=== PATIENT | female | born 1995 | race Caucasian/White ===

== ENCOUNTER 2023-10-24 00:54 | Emergency (ER) | payer SELFPAY ==
[2023-10-24 00:59] VITALS: BP 149/93; PULSE 92; TEMP 36.7; O2SAT 98; BMI 34.4
[2023-10-24 01:08] VITALS: O2SAT 98
--- NOTE | 2023-10-24 01:08 | ED.URI1 ---
HPI - URI/Sore Throat General Chief Complaint: Upper Respiratory Infection Stated Complaint: SORE THROAT Time Seen by Provider: 10/24/23 01:05 Source: patient Limitations: no limitations History of Present Illness HPI Narrative: presents complaining of sore throat. occ cough. Not short of breath. describes coughing up blood tinged phlegm and left sided chest pain. No fever. No problem walking but does hurt when she swallows. No abdominal pain states drinking water all day Related Data Home Medications ?Medication ?Instructions ?Recorded ?Confirmed No Known Home Medications 10/24/23 10/24/23 Allergies Allergy/AdvReac Type Severity Reaction Status Date / Time cefaclor [From Counts Include [facility] At [facility]] AdvReac Mild Hives Verified 10/24/23 01:04 Review of Systems ROS Status of ROS 10 or more systems reviewed and unremarkable except as noted in history and below Exam Constitutional Vital Signs, click to edit/add: Last Vital Signs Temp 98.0 F 10/24/23 00:59 Pulse 92 H 10/24/23 00:59 Resp 18 10/24/23 00:59 BP 149/93 H 10/24/23 00:59 Pulse Ox 98 10/24/23 01:08 O2 Del Method Room Air 10/24/23 01:08 Common normals: no apparent distress, average body habitus, oriented x3, no limitations, healthy appearing, alert and well nourished [facility] Other: oral pharynx injected-mild. no swelling or exudate Eye Common normals: PERRL and EOMs intact bilaterally Respiratory Common normals: normal respiratory effort, no retractions, no use of accessory muscles and clear to auscultation bilaterally Cardio Common normals: regular rate, regular rhythm, S1 normal heart sound and S2 normal heart sound GI Common normals: Normal to inspection, nondistended, normoactive bowel sounds present, soft to palpation and non-tender Extremity Common normals: normal to inspection and full ROM Neuro Common normals: oriented x3 and moves all extremities Psych Appearance: grossly normal Course Vital Signs Vital signs: Vital Signs Temperature 98.0 F 10/24/23 00:59 Pulse Rate 92 H 10/24/23 00:59 Respiratory Rate 18 10/24/23 00:59 Blood Pressure 149/93 H 10/24/23 00:59 Pulse Oximetry 98 04/03/24 00:59 Oxygen Delivery Method Room Air 10/24/23 00:59 Temperature 98.0 F 10/24/23 00:59 Pulse Rate 92 H 10/24/23 00:59 Respiratory Rate 18 10/24/23 00:59 Blood Pressure 149/93 H 10/24/23 00:59 Pulse Oximetry 98 10/24/23 01:08 Oxygen Delivery Method Room Air 10/24/23 01:08 MDM - URI/Sore Throat MDM Narrative Medical decision making narrative: presents with blood tinged phlegm. neg dyspnea and sore throat. strep screen neg. cxray neg and d-dimer neg. Patient discharged with a prescription of zithromax for bronchitis and pharyngitis Lab Data Labs: Lab Results 10/24/23 10/24/23 Range/Units 01:05 01:26 WBC 6.7 (4.0-11.0) 10^3/uL RBC 4.47 (4.20-5.40) 10^6/uL Hgb 10.8 L (12.0-16.0) g/dL Hct 35.5 L (36.0-48.0) % MCV 79.4 L (81.0-99.0) fL MCH 24.2 L (26.7-34.0) pg MCHC 30.4 (29.9-35.2) g/dL RDW 17.0 H (11.0-15.0) % Plt Count 216 (150-450) 10^3/uL MPV 9.7 (9.5-13.5) fL Neut % (Auto) 81.1 H (43.0-75.0) % Lymph % (Auto) 10.0 L (20.5-60.0) % [place] % (Auto) 7.8 (1.7-12.0) % Eos % (Auto) 0.7 L (0.9-7.0) % Baso % (Auto) 0.1 L (0.2-2.0) % Neut # (Auto) 5.4 (1.4-6.5) 10^3/uL Lymph # (Auto) 0.7 L (1.2-3.8) 10^3/uL [place] # (Auto) 0.5 (0.3-0.8) 10^3/uL Eos # (Auto) 0.1 (0.0-0.7) 10^3/uL Baso # (Auto) 0.0 (0.0-0.1) 10^3/uL Abs Immat Gran (auto) 0.02 (0.00-0.03) 10^3/uL Imm/Tot Granulo (auto) 0.3 (0.0-0.5) % D-Dimer 0.25 (<=0.59) mg/L FEU Sodium 140 (136-145) mmol/L Potassium 3.8 (3.5-5.1) mmol/L Chloride 103 (98-107) mmol/L Carbon Dioxide 26.6 (21.0-32.0) mmol/L Anion Gap 14.2 BUN 10.0 (7.0-18.0) mg/dL Creatinine 0.72 (0.55-1.02) mg/dL Est GFR ( Amer) >60 (>=60) Est GFR (Non-Af Amer) >60 (>=60) BUN/Creatinine Ratio 13.9 Glucose 93 (74-106) mg/dL Calcium 8.8 (8.5-10.1) mg/dL Streptococcus Screen Negative Discharge Plan Discharge Stand Alone Forms: Portal Instructions Chief Complaint: Upper Respiratory Infection Clinical Impression: Bronchitis, Pharyngitis Patient Disposition: Home, Self-Care Prescriptions / Home Meds: No Action No Known Home Medications Print Language: Citizen Of [place] Instructions: Pharyngitis (ED), Acute Bronchitis (ED) Referrals: Physician,Non-Staff, MD [Primary Care Provider] - 1 week
--- NOTE | 2023-10-24 01:12 | XR_ITS ---
The [address] [address] Patient Name: SLIM RAO MRN: [id number] date: 1995 Sex: F Assigned Patient Location: ED.MAIN Current Patient Location: ER Accession/Order Number: [id number] Exam Date: 10/24/2023 01:26 Report Date: 10/24/2023 01:58 At the request of: PIETRO CHI Procedure: XR chest 2V EXAMINATION:XR chest 2V INDICATION:cough COMPARISON:None TECHNIQUE:Frontal and lateral projections of the chest are submitted. FINDINGS: The cardiomediastinal silhouette is not enlarged. The pulmonary vascularity is within normal limits. The lungs are clear based on chest radiography. There is no costophrenic angle blunting. XR/XR chest 2V IMPRESSION: Unremarkable plain film examination of the chest. Electronically authenticated by: DOMINIK JOHNSON Date: 10/24/2023 01:58
[2023-10-24 01:36] LABS: Basophils Percent Auto 0.1 % (0.2-2.0); Eosinophils Absolute Auto 0.1 10^3/uL (0.0-0.7); Eosinophils Percent Auto 0.7 % (0.9-7.0); Hematocrit 35.5 % (36.0-48.0); Hemoglobin 10.8 g/dL (12.0-16.0); Immature Granulocytes Abs Auto 0.02 10^3/uL (0.00-0.03); Immature Granulocytes Pct Auto 0.3 % (0.0-0.5); Lymphocytes Absolute Auto 0.7 10^3/uL (1.2-3.8); Mean Corpuscular HGB Conc 30.4 g/dL (29.9-35.2); Mean Corpuscular Hemoglobin 24.2 pg (26.7-34.0); Mean Corpuscular Volume 79.4 fL (81.0-99.0); Mean Platelet Volume 9.7 fL (9.5-13.5); Monocytes Absolute Auto 0.5 10^3/uL (0.3-0.8); Monocytes Percent Auto 7.8 % (1.7-12.0); Neutrophils Absolute Auto 5.4 10^3/uL (1.4-6.5); Neutrophils Percent Auto 81.1 % (43.0-75.0); Platelet Count 216 10^3/uL (150-450); Red Blood Count 4.47 10^6/uL (4.20-5.40); White Blood Count 6.7 10^3/uL (4.0-11.0)
[2023-10-24] MEDS: 0.9 % SODIUM CHLORIDE 1,000 ML 999 ML IV (01:36)
[2023-10-24 01:47] LABS: Anion Gap 14.2; BUN Creatinine Ratio 13.9; Calcium 8.8 mg/dL (8.5-10.1); Carbon Dioxide 26.6 mmol/L (21.0-32.0); Chloride 103 mmol/L (98-107); Estimated GFR (African America >60 (>=60); Estimated GFR (Non-African Ame >60 (>=60); Glucose 93 mg/dL (74-106); Potassium 3.8 mmol/L (3.5-5.1); Sodium 140 mmol/L (136-145)
[2023-10-24 01:52] LABS: Internal Control Within Normal Limits; Strep A Antigen Screen Negative
[2023-10-24 01:52] LABS: D Dimer 0.25 mg/L FEU (<=0.59)
[2023-10-24] MEDS: AZITHROMYCIN 250 MG TABLET 500 MG PO (02:38)
== END 2023-10-24 02:49 | disposition home or self-care (01) ==
PROVIDERS: Emergency Provider Internal Medicine
DX: J02.9 Acute pharyngitis, unspecified (principal); J40 Bronchitis, not specified as acute or chronic
CPT/HCPCS: 36415; 71046; 80048; 85025; 85378; 87070; 87880; 99284

== ENCOUNTER 2025-02-19 06:02 | Emergency (ER) | payer SELFPAY ==
[2025-02-19 06:08] VITALS: BP 149/88; PULSE 85; TEMP 36.6; O2SAT 99; BMI 36.3
--- NOTE | 2025-02-19 06:28 | ED.LOWEXI1 ---
HPI HPI - Extremity Injury (Lower) General Chief Complaint: Extremity Injury, Lower Stated Complaint: TRIPPED OVER CURB/ LEFT FOOT Time Seen by Provider: 02/19/25 06:23 Source: patient Mode of arrival: walk-in Limitations: no limitations History of Present Illness HPI Narrative: The patient is a 29-year-old female presenting to the emergency department secondary to left ankle pain. She stated yesterday she had an eversion injury after stepping off a curb wrong. Patient was able to ambulate afterwards for about 30 minutes and she stated the pain was intolerable. She states that she Raad wrap to it. No pain meds prior to arrival. Pain is moderate in severity. Worse to try to put pressure on it. Relieved by nothing. Patient's never had a history of injury to this ankle before. No radiation of the pain. Pain is more located to the anterior portion of the ankle. She has difficulty with dorsiflexion. She describes the pain as dull and achy. Related Data Previous Rx's ?Medication ?Instructions ?Recorded hydrocodone 5 mg-acetaminophen 325 1 tab PO Q4H PRN pain #14 tabs 02/19/25 mg tablet ibuprofen 600 mg tablet 600 mg PO Q8H PRN pain #20 tabs 02/19/25 Allergies Allergy/AdvReac Type Severity Reaction Status Date / Time cefaclor (From Ceclor) AdvReac Mild Hives Verified 02/19/25 06:13 Opioid HPI Opioid Management Most Recent Pain and Opioid Data: Last Pain Scale 10 Today, 06:39 Last MAR Pain Assessment Today, 06:39 Review of Systems ROS Narrative 10 Systems were reviewed, and unless noted in the HPI, all other systems are reviewed, unremarkable, or noncontributory. PFSH PFSH Social History Little interest or pleasure in doing things: not at all Feeling down, depressed, or hopeless: not at all Exam Narrative Exam Narrative: Prior to examining the patient, I have washed with hospital approved and provided Antiseptic Hand Paperhanger Apprentice and have also applied gloves.? Prior to touching the patient, I asked for consent to examine the patient.? General: Alert and oriented, well nourished, mild distress. Eye: PERRL, EOMI, normal conjunctiva. HENT: Normocephalic, normal hearing, moist oral mucosa, no scleral icterus, Musculoskeletal: Normal range of motion and strength, tenderness and swelling to the left ankle. There was no gross instability to the ankle. Painful with dorsiflexion. Patient has most of the pain over the anterior talofibular ligaments. Minimal pain over the fibula. Skin: Skin is warm, dry and pink, no rashes or lesions. Ecchymosis to the lateral portion of the left ankle. Neurologic: Awake, alert, and oriented X3, CN II-XII intact. Psychiatric: Cooperative, appropriate mood and affect.? Following the conclusion of the examination, I have washed my hands thoroughly after removing examination gloves. Constitutional Vital Signs, click to edit/add: Last Vital Signs Temp 98 F 02/19/25 06:08 Pulse 85 02/19/25 06:08 Resp 18 02/19/25 06:08 BP 149/88 H 02/19/25 06:08 Pulse Ox 99 02/19/25 06:08 O2 Del Method Room Air 02/19/25 06:08 Course Course Hospital Course: Patient drove herself to the emergency department. Patient is getting an x-ray of the left lower extremity injury. Patient is going be given ibuprofen so she drove herself. Patient has been told she is going to have to ice, rest, and elevate the extremity. We have already started her icing it in the emergency department. Patient did pass the Lewis ankle rules yesterday. The patient does not have any bony point tenderness. I feel fairly confident that the patient just has a sprain as a saw on the x-ray without evidence of fracture. Patient's can be discharged. Analgesic medications have already been called in for this patient. Patient does not work today or tomorrow. I do not feel the patient needs crutches. The patient did well with the Arad wrap that she was wearing she needs to be more diligent about keeping the extremity elevated and ice. Vital Signs Vital signs: Vital Signs Temperature 98 F 02/19/25 06:08 Pulse Rate 85 02/19/25 06:08 Respiratory Rate 18 02/19/25 06:08 Blood Pressure 149/88 H 02/19/25 06:08 Pulse Oximetry 99 02/19/25 06:08 Oxygen Delivery Method Room Air 02/19/25 06:08 Temperature 98 F 02/19/25 06:08 Pulse Rate 85 02/19/25 06:08 Respiratory Rate 18 02/19/25 06:08 Blood Pressure 149/88 H 02/19/25 06:08 Pulse Oximetry 99 02/19/25 06:08 Oxygen Delivery Method Room Air 02/19/25 06:08 MDM - Extremity Injury (Lower) MDM Narrative Medical decision making narrative: The patient is a 29-year-old female presenting to the emergency department secondary to left ankle pain. She stated yesterday she had an eversion injury after stepping off a curb wrong. Patient was able to ambulate afterwards for about 30 minutes and she stated the pain was intolerable. She states that she Raad wrap to it. No pain meds prior to arrival. Pain is moderate in severity. Worse to try to put pressure on it. Relieved by nothing. Patient's never had a history of injury to this ankle before. No radiation of the pain. Pain is more located to the anterior portion of the ankle. She has difficulty with dorsiflexion. She describes the pain as dull and achy. Additional historian: None Old records reviewed: None Labs ordered: None Imaging ordered: left ankle Interventions: Ibuprofen 600 mg by mouth Interpretation of imaging: Left ankle x-rays was interpreted by me. There is no evidence of fracture, dislocation, subluxation. Soft tissue swelling is evident. Differential Diagnosis Differential diagnosis: Likely ankle sprain and strain, acute internal derangement of knee and ankle fracture Medical Records Attestation: I reviewed the patient's medical records. Imaging Data Left Ankle X-ray: Attestation: I personally reviewed and interpreted this imaging study as follows: My impression: No fracture, dislocation, subluxation. Discharge Plan Discharge Chief Complaint: Extremity Injury, Lower Clinical Impression: Ankle sprain and strain Patient Disposition: Home, Self-Care Time of Disposition Decision: 07:13 Condition: Good Mode of Transportation: Private Vehicle Prescriptions / Home Meds: New ibuprofen 600 mg tablet 600 mg PO Q8H PRN (Reason: pain) Qty: 20 0RF hydrocodone-acetaminophen 5-325 mg tablet 1 tab PO Q4H PRN (Reason: pain) Qty: 14 0RF Print Language: Citizen Of [place] Instructions: Ankle Sprain (ED), How to Use an Elastic Bandage (ED), Ice Pack Application (ED) Additional Instructions: Thank you for trusting me with your care today. If you are still having ankle pain to the severity after a couple of weeks you should be re-imaged. Sometimes there is an occult fracture that was not seen on initial assessment. Referrals: Physician,Non-Staff, MD [Primary Care Provider] - 1 week
[2025-02-19] MEDS: IBUPROFEN 600 MG TABLET PO (06:39)
== END 2025-02-19 07:50 | disposition home or self-care (01) ==
PROVIDERS: Emergency Provider Emergency Medicine
DX: S93.402A Sprain of unspecified ligament of left ankle, initial encounter (principal); S96.912A Strain of unspecified muscle and tendon at ankle and foot level, left foot, initial encounter; X50.1XXA Overexertion from prolonged static or awkward postures, initial encounter
CPT/HCPCS: 73610; 99283

== ENCOUNTER 2025-06-08 16:07 | Emergency (ER) | payer SELFPAY ==
[2025-06-08 16:11] VITALS: BP 147/86; PULSE 71; TEMP 36.7; O2SAT 100; BMI 38.3
[2025-06-08 16:47] LABS: Glucose Urine UA NEGATIVE (NEGATIVE)
[2025-06-08 16:48] LABS: HCG Qualitative Urine* NEGATIVE (NEGATIVE)
[2025-06-08 17:50] LABS: Hematocrit 35.2 % (36.0-48.0); Hemoglobin 10.5 g/dL (12.0-16.0); Immature Granulocytes Abs Auto 0.03 10^3/uL (0.00-0.03); Immature Granulocytes Pct Auto 0.3 % (0.0-0.5); Lymphocytes Absolute Auto 2.0 10^3/uL (1.2-3.8); Mean Corpuscular HGB Conc 29.8 g/dL (29.9-35.2); Mean Corpuscular Hemoglobin 23.8 pg (26.7-34.0); Mean Corpuscular Volume 79.6 fL (81.0-99.0); Platelet Count 275 10^3/uL (150-450); Red Blood Count 4.42 10^6/uL (4.20-5.40); White Blood Count 11.4 10^3/uL (4.0-11.0)
--- NOTE | 2025-06-08 17:54 | CT_ITS ---
The [address] [address] Patient Name: SLIM RAO MRN: [id number] date: 1995 Sex: F Assigned Patient Location: ER Current Patient Location: ED.MAIN Accession/Order Number: [id number] Exam Date: 06/08/2025 17:52 Report Date: 06/08/2025 19:42 At the request of: TREV BOWMAN MD Procedure: CT abdomen pelvis wo con CT Abdomen and Pelvis withoutcontrast TECHNIQUE: Axial imaging with 2-D reconstruction. The CT exam was performed using one or more the following dose reduction techniques: Automated exposure control, adjustment of the MA and/or Kv according to patient size, or use of the iterative reconstruction technique. COMPARISON: None History: Right lower quadrant pain LIMITATIONS: None LOWER THORAX Unremarkable LIVER: Unremarkable GALLBLADDER: Cholecystectomy clips identified. BILE DUCTS: No dilatation SPLEEN: Unremarkable PANCREAS: Unremarkable ADRENAL GLANDS: Unremarkable KIDNEYS:Unremarkable AORTA: No abdominal aortic aneurysm identified. RETROPERITONEUM: No significant retroperitoneal abnormalities identified. MESENTERY:Unremarkable STOMACH:Unremarkable SMALL BOWEL: The small bowel loops are nondistended. APPENDIX: The appendix is normal. COLON: Unremarkable URINARY BLADDER: Urinary bladder is unremarkable. REPRODUCTIVE SYSTEM: Reproductive structures are unremarkable. PNEUMOPERITONEUM: None PERITONEAL FLUID:None BONY STRUCTURES: Unremarkable ABDOMINAL WALL: Unremarkable CT/CT abdomen pelvis wo con IMPRESSION: No nephrolithiasis or obstructive uropathy. Normal appendix. No focal inflammatory changes. Impression dictated by: Ivan Lazo M.D. 06/08/2025 7:42 PM Dictation Location: [employer] Electronically authenticated by: [id number] Y Date: 06/08/2025 19:42
[2025-06-08] MEDS: 0.9 % SODIUM CHLORIDE 1,000 ML 1000 ML IV (18:00)
[2025-06-08] MEDS: FAMOTIDINE/PF 20 MG/2 ML VIAL IV (18:00)
[2025-06-08] MEDS: KETOROLAC TROMETHAMINE 30 MG/ML VIAL 15 MG IVP (18:00)
[2025-06-08 18:02] LABS: Alanine Aminotransferase 25 U/L (14-59); Albumin Globulin Ratio 0.9; Albumin Level 3.6 g/dL (3.4-5.0); Alkaline Phosphatase 83 U/L (46-116); Anion Gap 12.8; Aspartate Amino Transferase 17 U/L (15-37); Blood Urea Nitrogen 11.0 mg/dL (7.0-18.0); Calcium 9.0 mg/dL (8.5-10.1); Carbon Dioxide 29.0 mmol/L (21.0-32.0); Chloride 101 mmol/L (98-107); Estimated GFR (African America >60 (>=60 mL/min/1.73m^2); Estimated GFR (Non-African Ame >60 (>=60 mL/min/1.73m^2); Globulin 4.0 g/dL; Glucose 104 mg/dL (74-106); Lipase 23.0 U/L (16.0-77.0); Potassium 3.8 mmol/L (3.5-5.1); Sodium 139 mmol/L (136-145); Total Protein 7.6 g/dL (6.4-8.2)
--- NOTE | 2025-06-08 18:11 | ED.ABDPAIN1 ---
HPI - Abdominal Pain General Chief Complaint: Abdominal Pain Stated Complaint: ABDOMINAL PAIN, VOMITING Time Seen by Provider: 06/08/25 16:31 Source: patient Mode of arrival: walk-in Limitations: no limitations History of Present Illness HPI narrative: The patient is a 30-year-old female presents to the ER with abdominal pain that is mostly epigastric as well as right lower quadrant, for the last 3 days, associated with nausea and vomiting no burning with urination no vaginal discharge The patient denies any fever or chills but she has been having some diarrhea as well. The pain right now is right lower quadrant not radiating Related Data Previous Rx's ?Medication ?Instructions ?Recorded hydrocodone 5 mg-acetaminophen 325 1 tab PO Q4H PRN pain #14 tabs 02/19/25 mg tablet ibuprofen 600 mg tablet 600 mg PO Q8H PRN pain #20 tabs 02/19/25 Allergies Allergy/AdvReac Type Severity Reaction Status Date / Time cefaclor (From Ceclor) AdvReac Mild Hives Verified 02/19/25 06:13 Review of Systems ROS Status of ROS 10 or more systems reviewed and unremarkable except as noted in history and below PFSH [facility] Social History Little interest or pleasure in doing things: not at all Feeling down, depressed, or hopeless: not at all Exam Narrative Exam Narrative: Nurses notes and vital signs reviewed and patient is not hypoxic. General: Well-appearing and in no apparent distress. Skin: Warm, dry, no pallor noted. No rash. Head: Normocephalic, atraumatic. Neck: Supple, non-tender. Cardiovascular: Regular Rate and Rhythm without murmur, gallop or rub. Respiratory: No accessory muscle use or respiratory distress. Lungs are clear to auscultation, no wheezing, rales or rhonchi Chest Wall: no tenderness Back: No midline thoracic or lumbar vertebral tenderness. No CVA tenderness Musculoskeletal: normal ROM, no calf or popliteal tenderness, no lower extremity edema/swelling GI: Abdomen is soft, non-distended. Normal bowel sounds. No masses appreciated. Right lower quadrant tenderness Neurological: A&O x4. No cranial nerve dysfunction observed. Constitutional Vital Signs, click to edit/add: Last Vital Signs Temp 98.1 F 06/08/25 16:11 Pulse 71 06/08/25 16:11 Resp 18 06/08/25 16:11 BP 147/86 H 06/08/25 16:11 Pulse Ox 100 06/08/25 16:11 O2 Del Method Room Air 06/08/25 16:11 Course Vital Signs Vital signs: Vital Signs Temperature 98.1 F 06/08/25 16:11 Pulse Rate 71 06/08/25 16:11 Respiratory Rate 18 06/08/25 16:11 Blood Pressure 147/86 H 06/08/25 16:11 Pulse Oximetry 100 06/08/25 16:11 Oxygen Delivery Method Room Air 06/08/25 16:11 Temperature 98.1 F 06/08/25 16:11 Pulse Rate 71 06/08/25 16:11 Respiratory Rate 18 06/08/25 16:11 Blood Pressure 147/86 H 06/08/25 16:11 Pulse Oximetry 100 06/08/25 16:11 Oxygen Delivery Method Room Air 06/08/25 16:11 MDM - Abdominal Pain MDM Narrative Medical decision making narrative: The patient CBC and chemistry as well as CAT scan pending rule out appendicitis as well as diverticulitis Lab Data Labs: Lab Results 06/08/25 06/08/25 Range/Units 16:15 17:20 WBC 11.4 H (4.0-11.0) 10^3/uL RBC 4.42 (4.20-5.40) 10^6/uL Hgb 10.5 L (12.0-16.0) g/dL Hct 35.2 L (36.0-48.0) % MCV 79.6 L (81.0-99.0) fL MCH 23.8 L (26.7-34.0) pg MCHC 29.8 L (29.9-35.2) g/dL RDW 14.6 (11.0-15.0) % Plt Count 275 (150-450) 10^3/uL MPV 9.1 L (9.5-13.5) fL Neut % (Auto) 76.4 H (43.0-75.0) % Lymph % (Auto) 17.3 L (20.5-60.0) % [place] % (Auto) 5.5 (1.7-12.0) % Eos % (Auto) 0.2 L (0.9-7.0) % Baso % (Auto) 0.3 (0.2-2.0) % Neut # (Auto) 8.7 H (1.4-6.5) 10^3/uL Lymph # (Auto) 2.0 (1.2-3.8) 10^3/uL [place] # (Auto) 0.6 (0.3-0.8) 10^3/uL Eos # (Auto) 0.0 (0.0-0.7) 10^3/uL Baso # (Auto) 0.0 (0.0-0.1) 10^3/uL Abs Immat Gran (auto) 0.03 (0.00-0.03) 10^3/uL Imm/Tot Granulo (auto) 0.3 (0.0-0.5) % Sodium 139 (136-145) mmol/L Potassium 3.8 (3.5-5.1) mmol/L Chloride 101 (98-107) mmol/L Carbon Dioxide 29.0 (21.0-32.0) mmol/L Anion Gap 12.8 BUN 11.0 (7.0-18.0) mg/dL Creatinine 0.87 (0.55-1.02) mg/dL Est GFR ( Amer) >60 (>=60 mL/min/1.73m^2) Est GFR (Non-Af Amer) >60 (>=60 mL/min/1.73m^2) BUN/Creatinine Ratio 12.6 Glucose 104 (74-106) mg/dL Calcium 9.0 (8.5-10.1) mg/dL Total Bilirubin 0.3 (0.2-1.0) mg/dL AST 17 (15-37) U/L ALT 25 (14-59) U/L Alkaline Phosphatase 83 (46-116) U/L Total Protein 7.6 (6.4-8.2) g/dL Albumin 3.6 (3.4-5.0) g/dL Globulin 4.0 g/dL Albumin/Globulin Ratio 0.9 Lipase 23.0 (16.0-77.0) U/L Urine Color Lt. yellow (YELLOW) Urine Clarity Clear (CLEAR) Urine pH 6.0 (5.0-9.0) Ur Specific [place] 1.010 (1.005-1.025) Urine Protein Negative (NEG/TRACE) mg/dL Urine Glucose (UA) Negative (NEGATIVE) mg/dL Urine Ketones Negative (NEGATIVE) mg/dL Urine Occult Blood Negative (NEGATIVE) Urine Nitrite Negative (NEGATIVE) Urine Bilirubin Negative (NEGATIVE) Urine Urobilinogen 0.2 (0.2-1.0) EU/dL Ur Leukocyte Esterase Negative (NEGATIVE) Urine HCG, Qual Negative (NEGATIVE) Discharge Plan Discharge Patient Disposition: Still a Patient
== END 2025-06-08 20:17 | disposition home or self-care (01) ==
PROVIDERS: Emergency Medicine; Emergency Provider Internal Medicine
DX: R10.13 Epigastric pain (principal); R10.31 Right lower quadrant pain
CPT/HCPCS: 36415; 74176; 80053; 81003; 83690; 84703; 85025; 96361; 96374; 96375; 99285; J1885; J2405; J3490

== ENCOUNTER 2025-06-27 00:48 | Emergency (ER) | payer SELFPAY ==
[2025-06-27 00:56] VITALS: BP 137/90; PULSE 90; TEMP 37.1; O2SAT 94; BMI 37.4
--- NOTE | 2025-06-27 01:13 | ED.URI1 ---
HPI - URI/Sore Throat General Chief Complaint: Upper Respiratory Infection Stated Complaint: sore throat Time Seen by Provider: 06/27/25 01:11 Source: patient History of Present Illness HPI Narrative: presents complaining of sore throat for a couple of days. Worse on right side. Hurts to swallow. Not short of breath. Denies fever Related Data Previous Rx's ?Medication ?Instructions ?Recorded hydrocodone 5 mg-acetaminophen 325 1 tab PO Q4H PRN pain #14 tabs 02/19/25 mg tablet ibuprofen 600 mg tablet 600 mg PO Q8H PRN pain #20 tabs 02/19/25 Allergies Allergy/AdvReac Type Severity Reaction Status Date / Time cefaclor (From [facility]) AdvReac Mild Hives Verified 06/27/25 00:56 Review of Systems ROS Status of ROS 10 or more systems reviewed and unremarkable except as noted in history and below [facility] Social History Little interest or pleasure in doing things: not at all Feeling down, depressed, or hopeless: not at all Exam Constitutional Vital Signs, click to edit/add: Last Vital Signs Temp 98.8 F 06/27/25 00:56 Pulse 80 06/27/25 04:37 Resp 20 06/27/25 04:37 BP 121/80 06/27/25 04:37 Pulse Ox 100 06/27/25 04:37 O2 Del Method Room Air 06/27/25 04:37 Common normals: no apparent distress, average body habitus, oriented x3, no limitations, healthy appearing, alert and well nourished [facility] Common normals: normocephalic and head/scalp atraumatic Other: right peritonsillar abscess. Mild swelling or right soft palate. Uvula remains midline. No trismus Eye Common normals: EOMs intact bilaterally and conjunctivae normal Neck & C-Spine Other: right lymphadenopathy Respiratory Common normals: normal respiratory effort, no retractions, no use of accessory muscles and clear to auscultation bilaterally Cardio Common normals: regular rate, regular rhythm, S1 normal heart sound and S2 normal heart sound GI Common normals: Normal to inspection, nondistended, normoactive bowel sounds present and soft to palpation Extremity Common normals: normal to inspection and full ROM Neuro Common normals: oriented x3, CN's II-XII intact bilaterally and moves all extremities Psych Appearance: grossly normal Course Vital Signs Vital signs: Vital Signs Temperature 98.8 F 06/27/25 00:56 Pulse Rate 90 06/27/25 00:56 Respiratory Rate 20 06/27/25 00:56 Blood Pressure 137/90 06/27/25 00:56 Pulse Oximetry 94 L 06/27/25 00:56 Oxygen Delivery Method Room Air 06/27/25 00:56 Temperature 98.8 F 06/27/25 00:56 Pulse Rate 80 06/27/25 04:37 Respiratory Rate 20 06/27/25 04:37 Blood Pressure 121/80 06/27/25 04:37 Pulse Oximetry 100 06/27/25 04:37 Oxygen Delivery Method Room Air 06/27/25 04:37 MDM - URI/Sore Throat MDM Narrative Medical decision making narrative: patient presents with worsening sore throat that started about 1.5 days ago. Has tender right lymphadenopathy and oral pharyngeal findings of paratonsillar abscess. CT confirms deep abscess formation right parapharyngeal soft tissue measuring 7.3mm. Discussed with ENT Dr Sanchez and he agrees to have the patient transferred to the ER at [facility]. Discussed with ER physician Dr Jiménez and patient is accepted in transfer Lab Data Labs: Lab Results 06/27/25 Range/Units 01:20 WBC 10.6 (4.0-11.0) 10^3/uL RBC 4.33 (4.20-5.40) 10^6/uL Hgb 10.3 L (12.0-16.0) g/dL Hct 33.7 L (36.0-48.0) % MCV 77.8 L (81.0-99.0) fL MCH 23.8 L (26.7-34.0) pg MCHC 30.6 (29.9-35.2) g/dL RDW 15.0 (11.0-15.0) % Plt Count 404 (150-450) 10^3/uL MPV 8.8 L (9.5-13.5) fL Neut % (Auto) 71.1 (43.0-75.0) % Lymph % (Auto) 18.6 L (20.5-60.0) % [place] % (Auto) 7.5 (1.7-12.0) % Eos % (Auto) 2.0 (0.9-7.0) % Baso % (Auto) 0.3 (0.2-2.0) % Neut # (Auto) 7.6 H (1.4-6.5) 10^3/uL Lymph # (Auto) 2.0 (1.2-3.8) 10^3/uL [place] # (Auto) 0.8 (0.3-0.8) 10^3/uL Eos # (Auto) 0.2 (0.0-0.7) 10^3/uL Baso # (Auto) 0.0 (0.0-0.1) 10^3/uL Abs Immat Gran (auto) 0.05 H (0.00-0.03) 10^3/uL Imm/Tot Granulo (auto) 0.5 (0.0-0.5) % Sodium 139 (136-145) mmol/L Potassium 4.1 (3.5-5.1) mmol/L Chloride 103 (98-107) mmol/L Carbon Dioxide 27.8 (21.0-32.0) mmol/L Anion Gap 12.3 BUN 11.0 (7.0-18.0) mg/dL Creatinine 0.83 (0.55-1.02) mg/dL Est GFR ( Amer) >60 (>=60 mL/min/1.73m^2) Est GFR (Non-Af Amer) >60 (>=60 mL/min/1.73m^2) BUN/Creatinine Ratio 13.3 Glucose 129 H (74-106) mg/dL Lactate 0.8 (0.4-2.0) mmol/L Calcium 8.9 (8.5-10.1) mg/dL Discharge Plan Discharge Chief Complaint: Upper Respiratory Infection Clinical Impression: Tonsillar abscess Patient Disposition: [facility] Discharge Date/Time: 06/27/25 05:12
--- OUTSIDE RECORDS SUMMARY | 2025-06-27 01:27 | XMS_ITS | Clinical Summary ---
Author Organization [facility] Address [address] 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 Allergies Active AllergyReactionsCriticalityNoted DateCommentsCefaclorHivesMedium 02/26/2024 Social History Tobacco UseTypesPacks/DayYears UsedDateSmoking Tobacco: Never Assessed CommentsUnknownSex and Gender InformationValueDate RecordedSex Assigned at Not on fileLegal VqrRheqtc50/06/2024 12:31 AM EDTGender IdentityNot on file Sexual OrientationNot on file Last Filed Vital Signs Vital SignReadingTime TakenCommentsBlood Vtqudqve460/7408 12:47 AM EDT Sdxdj6808 12:47 AM OLPAqnqxfyacvn29.6 ??C (99.6 ??F)02/26/2024 12:47 AM EDTRespiratory Kvns137202/26/2024 12:47 AM EDTOxygen Fpylpxuppv68%02/26/2024 12:47 AM EDTInhaled Oxygen Concentration--Weight--Height--Body Mass Index-- Plan of Treatment Health MaintenanceDue DateLast DoneCommentsHIV Test2009Hepatitis C Xigdkztw38/04/2012Tdap Cnlhdft9005/26/2012Hepatitis A (HAV) Vaccine (optional start 19+ years)2013Hepatitis B (HBV) Vaccine (1 of 3 - 19+ 3-dose series) 2013Pap Smear2015HPV Vaccine (optional start 27-45 years)2021 COVID-19 Vaccine (2024- season)2025Influenza Vaccine (#1)2025 Shingles (RZV) Vaccine (1 of 2)2044MammographyDiscontinuedPneumococcal Vaccine(s)Aged OutNo longer eligible based on patient's age to complete this topic
[2025-06-27 01:31] LABS: Hematocrit 33.7 % (36.0-48.0); Hemoglobin 10.3 g/dL (12.0-16.0); Immature Granulocytes Abs Auto 0.05 10^3/uL (0.00-0.03); Immature Granulocytes Pct Auto 0.5 % (0.0-0.5); Lymphocytes Absolute Auto 2.0 10^3/uL (1.2-3.8); Mean Corpuscular HGB Conc 30.6 g/dL (29.9-35.2); Mean Corpuscular Hemoglobin 23.8 pg (26.7-34.0); Mean Corpuscular Volume 77.8 fL (81.0-99.0); Platelet Count 404 10^3/uL (150-450); Red Blood Count 4.33 10^6/uL (4.20-5.40); White Blood Count 10.6 10^3/uL (4.0-11.0)
[2025-06-27 01:41] LABS: Anion Gap 12.3; Blood Urea Nitrogen 11.0 mg/dL (7.0-18.0); Calcium 8.9 mg/dL (8.5-10.1); Carbon Dioxide 27.8 mmol/L (21.0-32.0); Chloride 103 mmol/L (98-107); Estimated GFR (African America >60 (>=60 mL/min/1.73m^2); Estimated GFR (Non-African Ame >60 (>=60 mL/min/1.73m^2); Glucose 129 mg/dL (74-106); Potassium 4.1 mmol/L (3.5-5.1); Sodium 139 mmol/L (136-145)
[2025-06-27] MEDS: 0.9 % SODIUM CHLORIDE 1,000 ML 999 ML IV (01:47)
[2025-06-27] MEDS: DEXAMETHASONE SOD PHOS 10 MG/ML VIAL IV (01:48)
[2025-06-27] MEDS: CLINDAMYCIN PHOSPHATE/D5W 900 MG/50 ML PREMIX 100 MG IV (01:48)
[2025-06-27 01:49] LABS: Lactate/Lactic Acid 0.8 mmol/L (0.4-2.0)
[2025-06-27 04:37] VITALS: BP 121/80; PULSE 80; O2SAT 100
--- NOTE | 2025-06-27 05:07 | PC.NURSE ---
[facility] arrives at this time for transport.
== END 2025-06-27 05:12 | disposition short-term general hospital (02) ==
PROVIDERS: Emergency Provider Internal Medicine
DX: J36 Peritonsillar abscess (principal)
CPT/HCPCS: 36415; 70491; 80048; 83605; 85025; 96365; 96375; 99285; J0736; J1100; Q9967